=== PATIENT | male | born 1970 | race Caucasian/White ===

== ENCOUNTER 2017-01-15 07:16 | Day surgery (SDC) | payer BC ==
[2017-01-14 10:42] LABS: HEMATOCRIT 46.2 % (40.0-51.0); HEMOGLOBIN 16.6 g/dL (13.6-17.8)
[2017-01-14 10:58] LABS: BUN (BLOOD UREA NITROGEN) 12 MG/DL (6-23); CALCIUM, SERUM 9.3 MG/DL (8.5-10.4); CHLORIDE, SERUM 106 MMOL/L (96-112); CO2 (CARBON DIOXIDE) 30 MMOL/L (24-34); CREATININE 1.01 MG/DL (0.70-1.30); GFR AFRICAN AMERICAN 102 ML/MIN (>=60); GFR NON AFRICAN AMERICAN 88 ML/MIN (>=60); GLUCOSE, SERUM 89 MG/DL (60-99); POTASSIUM, SERUM 4.6 MMOL/L (3.5-5.3); SODIUM, SERUM 141 MMOL/L (135-148)
--- NOTE | ~2017-01-15 | OP ---
Record Of Operation [facility] [address] [place]. [address] NAME: IRCO HERNANDEZ : 68 STATUS : REG [facility] [place] PAT#: [id number] AGE: 46 ADM/REG DATE : 01/15/17 MR#: [id number] REPORT SERV DATE: 01/15/17 DICTATED BY: SALINA FIGUEROA DATE: 01/15/17 REPORT STATUS : Draft TRANSCRIBED BY: LUÍSL DATE: 01/15/17 DATE OF PROCEDURE: 01/15/2017 PREOPERATIVE DIAGNOSIS: Lipoma 6 cm. POSTOPERATIVE DIAGNOSIS: Lipoma 6 cm. PROCEDURE: 1. Wide local excision of 6 cm lipoma. 2. Intermediate closure, 7 cm. SURGEON: Salina Figueroa M.D. ANESTHESIA: General. COMPLICATIONS: None. COUNTS: All counts were correct following the procedure. ESTIMATED BLOOD LOSS: 5 mL. PREOPERATIVE INFORMED CONSENT: We discussed the risks and benefits of the surgery including, but not limited to bleeding, infection, possible recurrence of lipoma and possible scarring in the neck and consent is on the chart. PROCEDURE IN DETAIL: The patient was brought to the operating suite and placed on the operating table in the supine position. General anesthesia was initiated without incident. Following this, the neck was then marked and injected with 5 mL 1% lidocaine and 1:100,000 epinephrine for hemostasis. Following this, a 15 blade scalpel was used to make an incision down to the underlying subcutaneous tissues. Then, using curved Metzenbaum scissors down through the platysmal layer, just beneath the platysmal layer, there was a well-defined lipoma that was carefully dissected from the surrounding tissues. The feeding vessels were cauterized using bipolar cautery and standard electrocautery. This lesion was dissected out from the underlying subcutaneous tissues and removed en bloc and sent for permanent section. Wound was copiously irrigated with sterile saline and closed in layers using a 4-0 Vicryl followed by skin closure using running subcuticular 4-0 Prolene closure. The patient was then awakened from anesthesia and taken to recovery room in stable condition. EVGENY/ZOLTAN Salina Figueroa M.D. / [id number] Record Of Operation [address] [address] NAME: RICO HERNANDEZ : 68 STATUS : REG [facility] [place] PAT#: [id number] AGE: 46 ADM/REG DATE : 01/15/17 MR#: [id number] REPORT SERV DATE: 01/15/17 DICTATED BY: SALINA FIGUEROA DATE: 01/15/17 REPORT STATUS : Draft TRANSCRIBED BY: LUÍSL DATE: 01/15/17 CC: Jenny Womack PA-C
[~2017-01-15 07:16] MED LIST: COZ25 PO; PROBIOTIC
== END 2017-01-15 23:59 | disposition home or self-care (01) ==
LOC: MSC 07:16
PROVIDERS: Otolaryngology
PROC: 0WB60ZZ Excision of Neck, Open Approach (ICD-10-PCS; 2017-01-15)
PROC: 0JQ40ZZ Repair Right Neck Subcutaneous Tissue and Fascia, Open Approach (ICD-10-PCS; principal; 2017-01-15 09:45)
DX: D17.0 Benign lipomatous neoplasm of skin and subcutaneous tissue of head, face and neck (principal); I10 Essential (primary) hypertension; Z88.5 Allergy status to narcotic agent
CPT/HCPCS: 80048; 85014; 85018; 88304; 93005; A9270-GY; J0690; J2250; J2405; J2710; J3010